=== PATIENT | male | born 1950 | race Caucasian/White ===

== ENCOUNTER → 2016-11-10 | Day surgery (SDC) | payer MEDICARE, OTHER ==
[~2016-11-10] MED LIST: ASPI-482 PO; FINA5TAB4 PO; HYDR12.58 PO; IV RINGERS,LACTATED 1000ML 1,000 ML IV SCH; LIDOCAINE 2% PF Vial for OR 5 ML VIAL. ONE; LISI40TA PO; LORA10TA3 PO; PROAIR HFA8.5 GM INH; PROPOFOL 20 ML IV ONE; SILD100T PO; SILO8CAP PO; SIMV10TA3 PO
[2016-11-10 08:20] VITALS: BP 123/83
== END | disposition home or self-care (01) ==
LOC: ENDOS 06:41
PROVIDERS: ATTEND Internal Medicine Gastroenterology
DX: K64.0 First degree hemorrhoids (principal); K57.30 Diverticulosis of large intestine without perforation or abscess without bleeding; E78.00 Pure hypercholesterolemia, unspecified; I10 Essential (primary) hypertension
CPT/HCPCS: 45378; 99156; J2704